=== PATIENT | female | born 1995 | race Caucasian/White ===

== ENCOUNTER 2017-06-09 10:51 | Emergency (ER) | payer MEDICARE ==
[~2017-06-09] VITALS: Ht 154.9 cm; Wt 57.6 kg
[2017-06-09 10:55] VITALS: BP 122/65
--- NOTE | 2017-06-09 11:27 | NUR ---
PT COMES TO ED C/O ABD CRAMPING ANF PAIN FOR 2 WEEKS. PT REPORTS BEING 7 WEEKS . DENIES CP SOB N/V OR DIZZINESS.
[2017-06-09 11:50] LABS: BASOPHILS % (AUTO) 0.6 % (0.0-2.0); EOSINOPHILS # (AUTO) 0.1 K/uL (0-0.4); EOSINOPHILS % (AUTO) 1.8 % (0.0-4.0); HEMATOCRIT 40.3 % (36-48); HEMOGLOBIN 13.8 g/dL (12.0-16.0); LYMPHOCYTES # (AUTO) 1.9 K/uL (2.5-16.5); LYMPHOCYTES % (AUTO) 23.8 % (20.5-51.1); MEAN CORPUSCULAR HEMOGLOBIN 32 pg (27-31); MEAN CORPUSCULAR HGB CONC 34 g/dL (33-37); MEAN CORPUSCULAR VOLUME 94.4 fL (80-94); MONOCYTES # (AUTO) 0.7 K/uL (0.8-1.0); MONOCYTES % (AUTO) 8.1 % (1.7-9.3); NEUTROPHILS # (AUTO) 5.3 K/uL (1.8-7.7); NEUTROPHILS % (AUTO) 65.7 % (42.2-75.2); PLATELET COUNT (AUTO) 213 K/uL (140-450); RED BLOOD CELL COUNT(AUTO) 4.27 MIL/uL (4.20-5.40); RED CELL DISTRIBUTION WIDTH 13.1 % (11.6-13.7); WHITE BLOOD COUNT (AUTO) 8.1 K/uL (4.5-11.0)
[2017-06-09 11:50] LABS: BILIRUBIN,URINE NEGATIVE (NEGATIVE); BLOOD, URINE NEGATIVE (NEGATIVE); COLOR,URINE YELLOW (YELLOW); LEUKOCYTE ESTERASE ,URINE NEGATIVE (NEGATIVE); NITRITE, URINE NEGATIVE (NEGATIVE); UGLUCOSE NEGATIVE (NEGATIVE)
--- NOTE | 2017-06-09 11:50 | NUR ---
PT TAKEN TO US
[2017-06-09 12:56] LABS: APPEARANCE,URINE SLIGHTLY HAZY (CLEAR)
[2017-06-09 12:57] LABS: RBC,URINE NONE SEEN /HPF (0-5); WBC,URINE 0-5 (RARE) /HPF (0-5)
--- NOTE | 2017-06-09 13:29 | NUR ---
Patient appears to be resting comfortably in bed. VSS. Respirations even and unlabored.
[2017-06-09 14:06] VITALS: BP 115/78
--- NOTE | 2017-06-09 14:07 | NUR ---
Patient discharged with v/s stable. Written and verbal after care instructions given and explained. Patient verbalized understanding. Ambulatory with STEADY GAIT. All questions addressed prior to discharge. Advised to follow up with PMD.
== END 2017-06-09 14:07 | disposition home or self-care (01) ==
LOC: MED 10:51
DX: O26.891 Other specified pregnancy related conditions, first trimester (principal); R10.32 Left lower quadrant pain; R11.0 Nausea
CPT/HCPCS: 36415; 76817; 81001; 81025; 84702; 85025; 99285

== ENCOUNTER 2017-10-12 02:05 | Inpatient (IN) | payer MEDICARE ==
[~2017-10-12] VITALS: Ht 154.9 cm; Wt 61.2 kg
[2017-10-12] MEDS ORDERED: ACETAMINOPHEN 325 MG TAB PO PRN (02:35)
[2017-10-12] MEDS ORDERED: ACETAMINOPHEN 325 MG TAB ONE (02:43)
[2017-10-12 04:00] VITALS: BP 101/61
--- NOTE | 2017-10-12 08:20 | NUR ---
PATIENT HAS BEEN SCREENED AND CATEGORIZED LOW NUTRITION RISK. PATIENT WILL BE SEEN WITHIN 7 DAYS OF ADMISSION. 10/18/[address]
--- NOTE | 2017-10-12 11:33 | NUR ---
CM NOTE PER [facility] CM COORDINATOR JHONY Rivera PH# [phone], SEND REVIEWS TO [facility] AND [facility] AND NO ASSIGNED CM AT THIS TIME. PER JHONY Rivera, FOR ANY DC NEEDS TO CONTACT [facility]. INITIAL REVIEW FAXED TO [facility] [phone] [place] PH# [phone] [facility] [phone] PH# [phone]
== END 2017-10-12 10:20 | disposition home or self-care (01) | DRG 566 ==
LOC: MLD 02:05 → MFCC 03:36
PROVIDERS: ADMIT Obstetrics & Gynecology; ATTEND Obstetrics & Gynecology
DX: O26.892 Other specified pregnancy related conditions, second trimester (principal); R51 Headache; R10.9 Unspecified abdominal pain; Z3A.25 25 weeks gestation of pregnancy
CPT/HCPCS: 76805; 81000; Q0092

== ENCOUNTER 2017-11-12 19:32 | Emergency (ER) | payer MEDICARE ==
[~2017-11-12] VITALS: Ht 157.5 cm; Wt 67.2 kg
[2017-11-12 19:37] VITALS: BP 103/66
--- NOTE | 2017-11-12 19:51 | NUR ---
PT AMBULATED TO ED BED 10
--- NOTE | 2017-11-12 20:00 | NUR ---
PATIENT IS A 22 Y/O FEMALE WHO PRESENTS TO THE ED C/O RASH. PT STATES THAT IT STARTED X1 DAY AGO. PT REPORTS 5/10 ACHING R LEG PAIN. NOTED RED CIRCLES OF VARIOUS SIZES ON R LEG. PT DENIES CP, SOB, N/V/D. PT AWAKE AND ALERT, RR EVEN/UNLABORED. PT REPOSITIONED FOR COMFORT, BED IN LOWEST POSITION. ER MD DR. BRICENO NOTIFIED. WILL CONTINUE TO MONITOR.
[2017-11-12 20:40] VITALS: BP 108/72
--- NOTE | 2017-11-12 20:40 | NUR ---
Patient discharged with v/s stable. Written and verbal after care instructions given and explained. Patient alert, oriented and verbalized understanding of instructions. Ambulatory with steady gait. All questions addressed prior to discharge. ID band removed. Patient advised to follow up with PMD. Rx of KEFLEX 500MG, DIPHENHYDRAMINE 25MG AND HYDROCORTISONE 1% TOPICAL given. Patient educated on indication of medication including possible reaction and side effects. Opportunity to ask questions provided and answered.
== END 2017-11-12 20:40 | disposition home or self-care (01) ==
LOC: MED 19:32
DX: R21 Rash and other nonspecific skin eruption (principal); Z91.018 Allergy to other foods
CPT/HCPCS: 81002; 81025; 99283; Q0163